=== PATIENT | female | born 1995 | race Hispanic/Latino ===

== ENCOUNTER 2020-09-25 21:08 | Emergency (ER) | payer OTHER ==
[2020-09-25] MEDS ORDERED: KETOROLAC TROMETHAMINE 30MG/ML ONE (21:52)
[2020-09-25] MEDS ORDERED: HYDROCODONE/ACETAMINOPHEN 5/325 MG TAB ONE (21:53)
[2020-09-25] MEDS ORDERED: ONDANSETRON HCL 4 MG/2 ML VIAL ONE (23:24)
[2020-09-25] MEDS ORDERED: PROPOFOL 10 MG/ML 20ML VIAL IV ONE (23:24)
[2020-09-25] MEDS ORDERED: MORPHINE SULFATE 4 MG/1ML SYG ONE (23:24)
== END 2020-09-26 00:43 | disposition home or self-care (01) ==
LOC: EDH 21:08
DX: S53.124A Posterior dislocation of right ulnohumeral joint, initial encounter (principal); S42.401A Unspecified fracture of lower end of right humerus, initial encounter for closed fracture; K21.9 Gastro-esophageal reflux disease without esophagitis; W18.39XA Other fall on same level, initial encounter; Y93.89 Activity, other specified; Y92.89 Other specified places as the place of occurrence of the external cause; Y99.8 Other external cause status
CPT/HCPCS: 24600; 73060; 73080 ×2; 73090; 96372; 96374; 96375; 99285; J1885; J2270; J2405; J2704